=== PATIENT | female | born 1990 | race Caucasian/White ===

== ENCOUNTER 2024-01-10 10:33 | Inpatient (IN) | payer MEDICAID, SELFPAY ==
[2024-01-10 11:10] VITALS: BMI 30.4
[2024-01-10 12:18] LABS: Hematocrit 33.5 % (34.9-44.5); Hemoglobin 12.1 g/dL (12.0-15.5); Mean Corpuscular HGB CONC 36.1 g/dL (32.0-36.0); Mean Corpuscular Hemoglobin 31.8 pg (27.0-33.0); Mean Corpuscular Volume 87.9 fL (81.6-98.3); Platelet Count 163 10x3/uL (150-450); RBC Distribution Width 12.3 % (11.5-14.5); Red Blood Cell (RBC) Count 3.81 10x6/uL (3.90-5.03); White Blood Cell (WBC) Count 29.6 10x3/uL (3.5-10.5)
[2024-01-10 12:48] LABS: Hep B Surf Ag - L&D Non-Reactive S/CO (NonReactive); Syphilis Antibody Nonreactive (Nonreactive); Syphilis Antibody Index 0.07 S/CO (<1.00 Non-Reactive)
[2024-01-10] MEDS ORDERED: diphenhydrAMINE 50 MG/ML VIAL IM PRN ×2 (13:18→13:56)
[2024-01-10] MEDS ORDERED: Ondansetron PF 4 MG/2 ML Vial IVP PRN ×3 (13:18→20:27)
[2024-01-10] MEDS ORDERED: Promethazine HCl 25 MG/ML VIAL IM PRN ×3 (13:18→20:27)
[2024-01-10] MEDS ORDERED: diphenhydrAMINE 50 MG/ML VIAL IVP PRN ×2 (13:18→13:56)
[2024-01-10] MEDS ORDERED: HYDROmorphone/PF 10 MG in Sodium Chloride 0.9% 49 ML IV PRN ×2 (13:18→14:02)
[2024-01-10] MEDS ORDERED: Naloxone HCl 0.4 mg/ml Vial IV PRN ×2 (13:18→13:56)
[2024-01-10] MEDS ORDERED: diphenhydrAMINE 25 MG CAP PO PRN ×3 (13:18→20:27)
[2024-01-10] MEDS ORDERED: Communication Order-Pharmacy FS PRN (13:30)
[2024-01-10] MEDS: Oxytocin 30 units/NS 500 ML 500 ML ONE (13:36)
[2024-01-10] MEDS: Ketorolac Tromethamine 30 MG (1 mL) VIAL IVP PRN (13:57)
[2024-01-10] MEDS ORDERED: Communication Order-Pharmacy FS SCH (14:00)
[2024-01-10] MEDS: HYDROmorphone/PF 10 MG in Sodium Chloride 0.9% 49 ML IVPB PRN (14:18)
[2024-01-10] MEDS: Heparin 1 UNITS/ML SYRINGE (NICU) ONE (15:00)
[2024-01-10] MEDS: Poractant Alfa 120 MG/1.5 ML SUV ONE (15:00)
[2024-01-10] MEDS: Midazolam HCl 2 mg/2 ml Vial ONE (15:01)
[2024-01-10] MEDS: Dexmedetomidine 200 MCG/2 ML VIAL ONE (15:01)
[2024-01-10] MEDS: fentaNYL 50 mcg/mL 1 mL Vial ONE ×2 (15:01)
[2024-01-10] MEDS: Acetaminophen 500 MG TAB PO SCH (15:02)
[2024-01-10] MEDS: Azithromycin 500 MG in Sodium Chloride 0.9% 250 ML 250 ML IVPB SCH (15:21)
[2024-01-10] MEDS: metroNIDAZOLE 500 MG in Premix 1 BAG IVPB SCH ×2 (15:21→23:35)
[2024-01-10 15:40] LABS: Hematocrit 28.6 % (34.9-44.5); Hemoglobin 10.2 g/dL (12.0-15.5); Mean Corpuscular HGB CONC 35.7 g/dL (32.0-36.0); Mean Corpuscular Hemoglobin 31.1 pg (27.0-33.0); Mean Corpuscular Volume 87.2 fL (81.6-98.3); Mean Platelet Volume 10.5 fL (7.4-10.4); Platelet Count 140 10x3/uL (150-450); RBC Distribution Width 12.6 % (11.5-14.5); Red Blood Cell (RBC) Count 3.28 10x6/uL (3.90-5.03); White Blood Cell (WBC) Count 20.4 10x3/uL (3.5-10.5)
[2024-01-10 16:19] LABS: D-Dimer Test 8.2 mcg/mL (0.19-0.50); INR-International Normal Ratio 1.1; PTT 27.6 sec (22.0-33.0); Prothrombin Time 11.4 sec (9.5-12.1)
[2024-01-10 17:15] LABS: ALT (SGPT) 8 U/L (8-55); AST (SGOT) 14 U/L (5-34); Albumin 2.1 g/dL (3.5-5.0); Alkaline Phosphatase 64 U/L (40-110); Anion Gap 13 mmol/L (10-20); BUN (Urea Nitrogen) 8 mg/dL (7.0-18.7); Bilirubin, Total 1.4 mg/dL (0.2-1.2); Calc. Creatinine Clearance 191 mL/min (70-130); Carbon Dioxide 17 mmol/L (22-29); Chloride 106 mmol/L (98-107); Estimated GFR 125; Glucose 192 mg/dL (70-105); Potassium 3.7 mmol/L (3.5-5.1); Protein, Total 5.1 g/dL (6.0-8.3); Sodium 132 mmol/L (136-145)
[2024-01-10] MEDS ORDERED: Simethicone Chewable 80 MG TAB PO PRN (20:27)
[2024-01-10] MEDS ORDERED: hydrALAZINE 20 MG/ML VIAL SLOW IVP PRN (20:27)
[2024-01-10] MEDS ORDERED: Lanolin Ointment 7 GM TUBE TOP PRN (20:27)
[2024-01-10] MEDS ORDERED: Bisacodyl 10 MG SUPP PR PRN (20:27)
[2024-01-10] MEDS: CEFAZOLIN 2 GM in Sodium Chloride 0.9% 100 ML IVPB SCH (21:17)
[2024-01-10] MEDS: Ibuprofen 800 MG TAB PO SCH (22:36)
[2024-01-10 23:01] LABS: Bilirubin Neg (Negative); Blood, Urine 150 (Negative); Clarity Clear (Clear); Glucose, Urine (Dipstick) 50 mg/dL (Negative); Ketone, Urine 50 mg/dL (Negative); Leukocyte Negative (Negative); Nitrite Negative (Negative); Protein, Urine (Dipstick) Negative (Neg-Trace); Specific Gravity, Urine 1.015 (1.005-1.030); Urobilinogen Normal mg/dL (Less than 2); pH, Urine 6.5 (5.0-9.0)
[2024-01-10 23:19] LABS: Bacteria/HPF Rare-Few HPF (None Seen); Squamous Epithelial 0-3 HPF (0-3); WBC/HPF 0-3 HPF (0-3)
[2024-01-11] MEDS: Docusate 100 MG CAP PO SCH (01:06)
[2024-01-11] MEDS: Ferrous Sulfate 325 MG TAB PO SCH (01:07)
[2024-01-11 03:43] LABS: Hematocrit 24.4 % (34.9-44.5); Hemoglobin 8.4 g/dL (12.0-15.5); Mean Corpuscular HGB CONC 34.4 g/dL (32.0-36.0); Mean Corpuscular Hemoglobin 29.8 pg (27.0-33.0); Mean Corpuscular Volume 86.5 fL (81.6-98.3); Mean Platelet Volume 10.7 fL (7.4-10.4); Platelet Count 130 10x3/uL (150-450); RBC Distribution Width 13.1 % (11.5-14.5); Red Blood Cell (RBC) Count 2.82 10x6/uL (3.90-5.03); White Blood Cell (WBC) Count 14.8 10x3/uL (3.5-10.5)
[2024-01-11] MEDS: Prenatal Vitamin 1 TAB PO SCH (09:14)
[2024-01-11] MEDS: GENTAMICIN SULFATE IVPB SCH (09:34)
[2024-01-11] MEDS: ADMIXTURE FEE IVPB SCH (09:34)
[2024-01-11] MEDS: SODIUM CHLORIDE IVPB SCH (09:34)
[2024-01-11] MEDS: Ibuprofen 800 MG TAB PO SCH (16:48)
[2024-01-11] MEDS: HYDROcodone/Acetaminophen 5/325 mg Tablet PO PRN ×2 (17:00→21:55)
[2024-01-12] MEDS: Boostrix 0.5 ML (Tdap) VIAL (>/=7 yrs of age) IM ONE (07:30)
[2024-01-12 19:52] VITALS: BP 98/55; TEMP 99
== END 2024-01-12 22:00 | disposition home or self-care (01) | DRG 786 ==
LOC: CSHLD/OP 10:33 → CSHLD 11:51 → CSHPED 21:30
PROVIDERS: ADMIT Family Medicine; ATTEND Family Medicine
PROC: 30233N1 Transfusion of Nonautologous Red Blood Cells into Peripheral Vein, Percutaneous Approach (ICD-10-PCS; principal; 2024-01-10)
PROC: 30233L1 Transfusion of Nonautologous Fresh Plasma into Peripheral Vein, Percutaneous Approach (ICD-10-PCS; 2024-01-10)
PROC: 10D00Z1 Extraction of Products of Conception, Low, Open Approach (ICD-10-PCS; 2024-01-10)
DX: O30.042 Twin pregnancy, dichorionic/diamniotic, second trimester (principal); O60.12X0 Preterm labor second trimester with preterm delivery second trimester, not applicable or unspecified; O98.512 Other viral diseases complicating pregnancy, second trimester; O32.1XX1 Maternal care for breech presentation, fetus 1; Z3A.22 22 weeks gestation of pregnancy; A60.04 Herpesviral vulvovaginitis; J30.2 Other seasonal allergic rhinitis; O32.1XX2 Maternal care for breech presentation, fetus 2; Z37.2 Twins, both liveborn
CPT/HCPCS: 36415; 36430; 51702; 80053; 81001; 83605; 85027; 85049; 85300; 85362; 85384; 85610; 85730; 86780; 86850; 86900; 86901; 87040; 87340; 88305; 99285; J0456; J1170; J1580; J1885; J2250; J2590; J3010; J3490; J7050; P9016; P9048